=== PATIENT | female | born 1945 | race Hispanic/Latino ===

== ENCOUNTER 2016-06-22 10:23 | Emergency (ER) | payer MEDICARE, OTHER ==
[~2016-06-22] VITALS: Ht 160 cm; Wt 61.2 kg
[2016-06-22] MEDS ORDERED: ASPI1TAB PO (10:51)
[2016-06-22] MEDS ORDERED: ALLE60TA69 PO (10:51)
[2016-06-22] MEDS ORDERED: LISI-538 PO (10:51)
[2016-06-22] MEDS ORDERED: SIMV40TA2 PO (10:51)
[2016-06-22] MEDS ORDERED: [UNRECOGNIZED DRUG - OTHER] PO (10:51)
[2016-06-22] MEDS ORDERED: allergy shots (10:51)
[2016-06-22] MEDS ORDERED: SITA50TAB PO (10:51)
[2016-06-22 13:07] LABS: BASO % 0.8 % (0.0-1.0); EOS # 0.3 K/mm3 (0.0-0.50); EOS % 4.5 % (0.0-3.0); INR 0.88; LARGE UNSTAINED CELL # 0.1 K/mm3 (0.0-0.4); LARGE UNSTAINED CELL % 1.6 % (0.0-4.0); LYMPH # 1.9 K/mm3 (1.5-4.5); LYMPH % 27.2 % (24.0-44.0); MEAN CORPUSCULAR HEMOGLOBIN 31.5 pg (27.0-33.0); MEAN CORPUSCULAR HGB CONC 33.5 g/dl (32.0-36.5); MEAN CORPUSCULAR VOLUME 93.9 fl (80.0-96.0); MONO # 0.4 K/mm3 (0.0-0.8); NEUTROPHILS # 3.9 K/mm3 (1.8-7.7); NEUTROPHILS % 59.9 % (36.0-66.0); PLATELET COUNT, AUTOMATED 247 k/mm3 (150-450); RED CELL DISTRIBUTION WIDTH 12.1 % (11.5-14.5); WHITE BLOOD COUNT 6.5 K/mm3 (4.0-10.0)
--- NOTE | 2016-06-22 13:21 | REP ---
CT HEAD WITHOUT CONTRAST: HISTORY: Infarction. COMPARISON: 04/19/2005. Areas of decreased attentuation are present in the periventricular white matter. This presents small vessel ischemic disease. There is no intraparenchymal hemorrhage, mass, or midline shift. The ventricular system and cortical sulci are dilated consistent with minimal volume loss. There is no extracerebral collection. Mucosal thickening is present in the right sphenoid sinus. IMPRESSION: 1. Small vessel ischemic disease. 2. Minimal volume loss. Signed by Mazin Kelley MD 06/22/2016 01:24 P
[2016-06-22 13:22] LABS: ANION GAP 9 MEQ/L (8-16); BLOOD UREA NITROGEN 14 MG/DL (7-18); CALCIUM LEVEL 9.7 MG/DL (8.8-10.2); CARBON DIOXIDE LEVEL 30 MEQ/L (21-32); CHLORIDE LEVEL 102 MEQ/L (98-107); CREATININE FOR GFR 0.92 MG/DL (0.55-1.02); GLOMERULAR FILTRATION RATE > 60.0 (>39); GLUCOSE, FASTING 106 MG/DL (83-110); POTASSIUM SERUM 3.9 MEQ/L (3.5-5.1); SODIUM LEVEL 141 MEQ/L (136-145)
--- NOTE | 2016-06-22 13:46 | REP ---
Chest one-view HISTORY: Infarction Comparison: None The lungs are clear. The heart is normal in size. The pulmonary vasculature is normal in appearance. Impression: No acute disease. Signed by Mazin Kelley MD 06/22/2016 01:38 P
[2016-06-22 17:50] VITALS: BP 131/66
--- NOTE | 2016-06-22 20:30 | REPUSA ---
MRI of the brain Clinical history: Headaches. Blurred vision. Technique: Multiecho multiplanar MRI images of the brain were obtained before and after administratio n of 12 mL of Prohance intravenous gadolinium contrast. Diffusion weighted images with ADC mapping wa s also obtained. Findings: The ventricles and sulci are symmetric bilaterally. The brain parenchyma demonstrates scattered foci of T2 hyperintensity throughout the periventricular and subcortical white matter bilaterally. There i s no midline shift, mass effect, or extra-axial fluid collection. The midline intracranial structures do not demonstrate any gross abnormalities. The cervical cranial junction is intact. The orbits are unremarkable. The visualized paranasal sinuses and mastoid air cells are clear. The osseous structure s and superficial soft tissues are unremarkable. The vascular structures demonstrate appropriate flow voids. On postcontrast images, the vascular structures enhancing appropriately. No abnormal enhancin g masses are seen. Impression: No evidence of acute infarct. Moderate chronic small vessel ischemic disease.
--- NOTE | 2016-06-22 20:30 | REPUSA ---
MRA of the brain Clinical history: dizziness, headache. Technique: [id number] MRA images of the brain were obtained without administration of contrast. 3 -D MIP images were also obtained. Findings: The vascular structures extending from the distal carotid and vertebrobasilar arterial syst ems, through the [place], demonstrate normal caliber and contour. There is no evidence of an eurysm, stenosis, or thrombosis. Impression: Unremarkable MRA examination of the brain.
[2016-06-22] MEDS ORDERED: MORPHINE 2 MG/ML 1ML SYRINGE IV ONE (21:00)
[2016-06-22] MEDS ORDERED: ASPI81TA85 PO (21:36)
--- NOTE | 2016-06-23 10:59 | ECGEPIP ---
Stationary ECG Study [facility] - ED Test Date: 2016-06-22 Pat Name: JESSICA MCCONNELL Department: Room: - Gender: F Ehs Teacher: felix : 1945 Requested By: Billy Velázquez Order Number: [id number] Reading MD: Kathie Rodriguez Measurements Intervals [place] Rate: 74 P: 53 MD: 184 QRS: 6 QRSD: 87 T: 30 QT: 378 QTc: 421 Interpretive Statements SINUS RHYTHM NSTTW ABNORMALITY NO PRIOR FOR COMPARISON Electronically Signed On 06-23-2016 10:59:13 EDT by Kathie Rodriguez
--- NOTE | 2016-06-23 11:02 | ECGEPIP ---
Stationary ECG Study [facility] - ED Test Date: 2016-06-22 Pat Name: JESSICA MCCONNELL Department: Room: - Gender: F Data Modeling Architect: : 1945 Requested By: Billy Velázquez Order Number: [id number] Reading MD: Kathie Rodriguez Measurements Intervals [place] Rate: 70 P: 16 AK: 181 QRS: 3 QRSD: 82 T: 31 QT: 392 QTc: 425 Interpretive Statements SINUS RHYTHM NONSPECIFIC T-WAVE ABNORMALITY SIMILAR 06/22/16 Electronically Signed On 06-23-2016 11:02:33 EDT by Kathie Rodriguez
== END 2016-06-22 21:55 | disposition home or self-care (01) ==
LOC: M ED 11:28
DX: H53.2 Diplopia (principal); H49.00 Third [oculomotor] nerve palsy, unspecified eye; R42 Dizziness and giddiness; R51 Headache; I67.9 Cerebrovascular disease, unspecified; I10 Essential (primary) hypertension; Z79.82 Long term (current) use of aspirin; Z79.899 Other long term (current) drug therapy; Z88.2 Allergy status to sulfonamides; Z91.040 Latex allergy status
CPT/HCPCS: 36415; 70450; 70544; 70553; 71010; 80048; 82550; 82553; 84484; 85025; 85610; 85730; 86850; 86900; 86901; 93005; 93041; 94760; 96374; 99285; A9576

== ENCOUNTER → 2017-08-23 | Outpatient (CLI) | payer MEDICARE, OTHER | LOC: M RAD 09:52 | DX: I87.2 Venous insufficiency (chronic) (peripheral) (principal); M71.21 Synovial cyst of popliteal space [Baker], right knee; M79.661 Pain in right lower leg; M79.662 Pain in left lower leg | CPT/HCPCS: 93970 ==

== ENCOUNTER → 2017-10-03 | Outpatient (CLI) | payer MEDICARE, OTHER | LOC: M RAD 08:28 | DX: R22.42 Localized swelling, mass and lump, left lower limb (principal); R09.89 Other specified symptoms and signs involving the circulatory and respiratory systems | CPT/HCPCS: 93926 ==

== ENCOUNTER → 2019-04-22 | Outpatient (CLI) | payer MEDICARE, OTHER ==
[~2019-04-22] MED LIST: ALLE60TA69 PO; ASPI81TA26 PO; ASPI81TA85 PO; LISI-538 PO; SIMV40TA20 PO; SITA50TAB PO; [UNRECOGNIZED DRUG - OTHER] PO; allergy shots
== END ==
LOC: M LAB 14:28
PROVIDERS: ATTEND Internal Medicine Cardiovascular Disease
DX: R07.89 Other chest pain (principal)

== ENCOUNTER → 2019-12-08 | Outpatient (CLI) | payer MEDICARE, OTHER ==
[~2019-12-08] MED LIST changes: -ASPI81TA85 PO; +ASPI81TA86 PO
== END ==
LOC: M LABSMTC 11:07
PROVIDERS: ATTEND Family Medicine
DX: Z20.828 Contact with and (suspected) exposure to other viral communicable diseases (principal)
CPT/HCPCS: C9803; U0003

== ENCOUNTER → 2021-12-20 | Outpatient (CLI) | payer MEDICARE, OTHER ==
[~2021-12-20] MED LIST changes: -LISI-538 PO; +LISI20TA33 PO
== END ==
LOC: M WHC 11:15
PROVIDERS: ATTEND Family Medicine
DX: Z12.31 Encounter for screening mammogram for malignant neoplasm of breast (principal)

== ENCOUNTER 2022-05-13 13:20 | Inpatient (IN) | payer MEDICARE, OTHER ==
[~2022-05-13] VITALS: Ht 160 cm; Wt 59.4 kg
[2022-05-13] MEDS ORDERED: ONDANSETRON 4MG 2ML VIAL IV ONE (13:30)
[2022-05-13 14:05] LABS: BASO # 0.1 10^3/uL (0.0-0.2); BASO % 0.6 % (0.0-1.0); EOS # 0.3 10^3/uL (0.0-0.5); EOS % 3.2 % (0.0-3.0); HEMATOCRIT 46.5 % (36.0-47.0); HEMOGLOBIN 14.5 g/dl (12.0-15.5); LYMPH # 2.7 10^3/uL (1.5-5.0); LYMPH % 27.4 % (24.0-44.0); MEAN CORPUSCULAR HEMOGLOBIN 28.5 pg (27.0-33.0); MEAN CORPUSCULAR HGB CONC 31.2 g/dl (32.0-36.5); MEAN CORPUSCULAR VOLUME 91.5 fl (80.0-96.0); MONO # 0.7 10^3/uL (0.0-0.8); MONO % 7.1 % (2.0-8.0); NEUTROPHILS % 61.2 % (36.0-66.0); PLATELET COUNT, AUTOMATED 250 10^3/uL (150-450); RED BLOOD COUNT 5.08 10^6/uL (4.00-5.40); WHITE BLOOD COUNT 9.8 10^3/uL (4.0-10.0)
[2022-05-13] MEDS: MORPHINE 2 MG/ML 1ML VIAL IV PRN ×3 (14:05→20:32)
[2022-05-13] MEDS ORDERED: ERGO500029 PO (14:15)
[2022-05-13] MEDS ORDERED: ASPI1TAB22 PO (14:15)
[2022-05-13] MEDS ORDERED: LISI20TA33 PO (14:15)
[2022-05-13] MEDS ORDERED: JARD1TAB PO (14:15)
[2022-05-13] MEDS ORDERED: METF10004 PO (14:15)
[2022-05-13] MEDS ORDERED: ROSU10TA6 PO (14:15)
[2022-05-13 14:18] LABS: INR 0.86; PROTHROMBIN TIME 11.9 SECONDS (12.5-14.5)
[2022-05-13 14:19] LABS: PARTIAL THROMBOPLASTIN TIME 21.8 SECONDS (24.8-34.2)
[2022-05-13 14:36] LABS: LIPASE 56 U/L (12-53)
[2022-05-13 14:42] LABS: ALKALINE PHOSPHATASE 102 U/L (46-116); ALT/SGPT 22 U/L (7.0-40); AST/SGOT 25 U/L (<34); BILIRUBIN,DIRECT 0.1 MG/DL (<0.4); BILIRUBIN,TOTAL 0.4 MG/DL (0.3-1.2); BLOOD UREA NITROGEN 17 MG/DL (9-23); CALCIUM LEVEL 9.5 MG/DL (8.3-10.6); CARBON DIOXIDE LEVEL 24 MMOL/L (20-31); CHLORIDE LEVEL 105 MMOL/L (98-107); CREATININE FOR GFR 0.85 MG/DL (0.55-1.30); GLOMERULAR FILTRATION RATE > 60.0 (>39); GLUCOSE, FASTING 80 MG/DL (74-106); POTASSIUM SERUM 4.3 MMOL/L (3.5-5.1); SODIUM LEVEL 139 MMOL/L (136-145); TOTAL PROTEIN 7.3 G/DL (5.7-8.2)
[2022-05-13 15:12] LABS: RSV AMPLIFICATION NEGATIVE (NEGATIVE)
[2022-05-13] MEDS ORDERED: ISOVUE-370 76% 100ML VIAL As Ordered ONE (16:00)
[2022-05-13 16:32] LABS: CK-MB VALUE MASS < 1.0 NG/ML (<3.6)
[2022-05-13 16:36] LABS: CPK CREATINE PHOSPHOKINASE 50 U/L (34-145)
[2022-05-13] MEDS ORDERED: MORPHINE 2 MG/ML 1ML VIAL IV PRN ×2 (17:35→17:50)
[2022-05-13] MEDS ORDERED: GLUCAGON INJ 1MG VIAL SC PRN (17:35)
[2022-05-13] MEDS ORDERED: DEXTROSE 50% 50ML SYRINGE IV PRN (17:35)
[2022-05-13] MEDS ORDERED: ASPIRIN 81MG CHEW TABLET PO ONE (17:35)
[2022-05-13] MEDS ORDERED: GLUCOSE 4GM CHEW TABLET PO PRN (17:35)
[2022-05-13] MEDS ORDERED: IPRATROPIUM 0.5MG/ALBUTEROL 2.5MG INH SOL UD 3ML (DUONEB) NEB PRN (17:50)
[2022-05-13] MEDS ORDERED: SITA50TAB PO (18:51)
[2022-05-13] MEDS ORDERED: CVS2500C PO (18:51)
[2022-05-13] MEDS ORDERED: HOME MED LIST COMPLETE! XX SCH (18:55)
[2022-05-13 19:46] LABS: CHOLESTEROL RISK RATIO 2.7 (<5); HDL CHOLESTEROL 58.7 MG/DL (>40); LDL CHOLESTEROL 75.9 MG/DL (<100); NON-HDL-C 100.3 MG/DL
[2022-05-13] MEDS: IPRATROPIUM 0.5MG/ALBUTEROL 2.5MG INH SOL UD 3ML (DUONEB) NEB SCH (20:58)
[2022-05-13] MEDS ORDERED: ATORVASTATIN 20 MG TAB PO SCH (21:00)
[2022-05-13] MEDS: INSULIN LISPRO (NovoLOG) PER UNIT SC SCH (21:00)
[2022-05-14] VITALS (8 sets, daily range): BP systolic 130–178; BP diastolic 60–89; O2SAT 98
[2022-05-14] MEDS: MORPHINE 2 MG/ML 1ML VIAL IV PRN ×4 (00:53→18:20)
[2022-05-14] MEDS: IPRATROPIUM 0.5MG/ALBUTEROL 2.5MG INH SOL UD 3ML (DUONEB) NEB SCH ×4 (02:00→19:25)
[2022-05-14 05:57] LABS: HEMATOCRIT 40.6 % (36.0-47.0); HEMOGLOBIN 12.7 g/dl (12.0-15.5); MEAN CORPUSCULAR HGB CONC 31.3 g/dl (32.0-36.5); MEAN CORPUSCULAR VOLUME 92.7 fl (80.0-96.0); PLATELET COUNT, AUTOMATED 249 10^3/uL (150-450); RED BLOOD COUNT 4.38 10^6/uL (4.00-5.40); WHITE BLOOD COUNT 8.3 10^3/uL (4.0-10.0)
[2022-05-14 06:06] LABS: CALCIUM LEVEL 9.1 MG/DL (8.3-10.6); CREATININE FOR GFR 1.09 MG/DL (0.55-1.30); GLOMERULAR FILTRATION RATE 51.8 (>39); POTASSIUM SERUM 5.1 MMOL/L (3.5-5.1)
[2022-05-14] MEDS: ASPIRIN 325 MG TAB PO SCH (09:02)
[2022-05-14] MEDS: INSULIN LISPRO (NovoLOG) PER UNIT SC SCH ×4 (09:07→21:00)
[2022-05-14] MEDS: NS 1,000 ML IV SCH (17:25)
[2022-05-14] MEDS: HEPARIN SOD (PORCINE) 5000UNITS/ML 1ML VIAL/SYRINGE SQ SCH (22:28)
[2022-05-15] MEDS: IPRATROPIUM 0.5MG/ALBUTEROL 2.5MG INH SOL UD 3ML (DUONEB) NEB SCH ×3 (01:01→13:51)
[2022-05-15 02:00] VITALS: BP 151/85
[2022-05-15] MEDS: MORPHINE 2 MG/ML 1ML VIAL IV PRN (04:26)
[2022-05-15 05:56] VITALS: O2SAT 96
[2022-05-15 06:00] VITALS: BP 154/84
[2022-05-15] MEDS: NS 1,000 ML IV SCH (06:00)
[2022-05-15] MEDS: HEPARIN SOD (PORCINE) 5000UNITS/ML 1ML VIAL/SYRINGE SQ SCH (06:00)
[2022-05-15 06:59] LABS: HEMOGLOBIN 11.8 g/dl (12.0-15.5); MEAN CORPUSCULAR HEMOGLOBIN 29.2 pg (27.0-33.0); MEAN CORPUSCULAR HGB CONC 30.3 g/dl (32.0-36.5); MEAN CORPUSCULAR VOLUME 96.5 fl (80.0-96.0); PLATELET COUNT, AUTOMATED 117 10^3/uL (150-450); RED BLOOD COUNT 4.04 10^6/uL (4.00-5.40); WHITE BLOOD COUNT 5.8 10^3/uL (4.0-10.0)
[2022-05-15 07:12] LABS: BLOOD UREA NITROGEN 20 MG/DL (9-23); CARBON DIOXIDE LEVEL 22 MMOL/L (20-31); CHLORIDE LEVEL 108 MMOL/L (98-107); CREATININE FOR GFR 0.88 MG/DL (0.55-1.30); GLOMERULAR FILTRATION RATE > 60.0 (>39); GLUCOSE, FASTING 125 MG/DL (74-106); SODIUM LEVEL 138 MMOL/L (136-145)
[2022-05-15] MEDS ORDERED: PERCOCET 5MG/325MG TAB PO PRN (07:20)
[2022-05-15 08:52] VITALS: BP 174/97
[2022-05-15] MEDS: ASPIRIN 325 MG TAB PO SCH (08:52)
[2022-05-15] MEDS: INSULIN LISPRO (NovoLOG) PER UNIT SC SCH ×2 (08:53→12:29)
[2022-05-15] MEDS ORDERED: ROSUVASTATIN 10 MG TAB (CRESTOR) PO SCH (09:00)
[2022-05-15 10:00] VITALS: BP 149/67
[2022-05-15 10:08] VITALS: BP 146/67
[2022-05-15] MEDS ORDERED: PERCOCET PO (11:37)
== END 2022-05-15 14:13 | DRG 185 ==
LOC: M ED 13:20 → M ED INP 17:46 → ENRESERV 22:37 → M PCU 05-14 00:37 → M MSPAV 05-14 14:54
PROVIDERS: ADMIT Surgery; ATTEND Internal Medicine
DX: S22.42XA Multiple fractures of ribs, left side, initial encounter for closed fracture (principal); I10 Essential (primary) hypertension; E11.9 Type 2 diabetes mellitus without complications; I16.0 Hypertensive urgency; E55.9 Vitamin D deficiency, unspecified; D69.6 Thrombocytopenia, unspecified; W18.30XA Fall on same level, unspecified, initial encounter; Y92.510 Bank as the place of occurrence of the external cause; R29.810 Facial weakness; Z88.2 Allergy status to sulfonamides; Z91.040 Latex allergy status; Z88.8 Allergy status to other drugs, medicaments and biological substances; Z79.82 Long term (current) use of aspirin; Z79.899 Other long term (current) drug therapy; E78.5 Hyperlipidemia, unspecified; K80.20 Calculus of gallbladder without cholecystitis without obstruction

== ENCOUNTER 2022-05-15 11:44 | Inpatient (IN) | payer MEDICARE, OTHER ==
[~2022-05-15] VITALS: Ht 160 cm; Wt 59.0 kg
[~2022-05-15 11:44] MED LIST changes: +ASPI1TAB22 PO; +CVS2500C PO; +ERGO500029 PO; +JARD1TAB PO; +METF10004 PO; +PERCOCET PO; +ROSU10TA6 PO
[2022-05-15 14:30] VITALS: BP 153/70
[2022-05-15] MEDS ORDERED: GLUCOSE 4GM CHEW TABLET PO PRN (14:35)
[2022-05-15] MEDS ORDERED: DEXTROSE 50% 50ML SYRINGE IV PRN (14:35)
[2022-05-15] MEDS ORDERED: BISACODYL 10MG SUPP PR PRN (14:35)
[2022-05-15] MEDS ORDERED: GLUCAGON INJ 1MG VIAL SC PRN (14:35)
[2022-05-15] MEDS ORDERED: HOME MED LIST COMPLETE! XX SCH (15:05)
[2022-05-15] MEDS: REMEDY PHYTOPLEX Z-GUARD PASTE 113GM TUBE (FROM STOREROOM PRODUCT) TOP SCH ×2 (16:00→21:00)
[2022-05-15] MEDS: oxyCODONE 5MG TAB PO PRN (17:54)
[2022-05-15] MEDS: guaiFENesin 200 MG TAB PO SCH ×2 (17:54→21:06)
[2022-05-15] MEDS: INSULIN LISPRO (NovoLOG) PER UNIT SC SCH ×2 (17:55→21:00)
[2022-05-15] MEDS: COMBIVENT RESPIMAT 100-20MCG INHALER 4GM INH SCH (19:43)
[2022-05-15 20:00] VITALS: BP 170/65
[2022-05-15] MEDS: DICLOFENAC EPOLAMINE 1.3% PATCH TOP SCH (21:05)
[2022-05-15] MEDS: HEPARIN SOD (PORCINE) 5000UNITS/ML 1ML VIAL/SYRINGE SC SCH (21:05)
[2022-05-15] MEDS: DOCUSATE SODIUM 100MG CAPSULE PO SCH (21:06)
[2022-05-15] MEDS: PANTOPRAZOLE 40MG TAB (PROTONIX) PO SCH (21:06)
[2022-05-15] MEDS: ACETAMINOPHEN 650MG ER TAB (TYLENOL ARTHRITIS) PO SCH (21:06)
[2022-05-15] MEDS: SENNA 8.6 MG TAB (SENOKOT) PO SCH (21:06)
[2022-05-15] MEDS ORDERED: **hydrALAZINE** 10 MG TAB PO ONE (21:35)
[2022-05-15 22:50] VITALS: BP 166/84
[2022-05-16] MEDS: ACETAMINOPHEN 650MG ER TAB (TYLENOL ARTHRITIS) PO SCH ×3 (05:44→21:04)
[2022-05-16] MEDS: HEPARIN SOD (PORCINE) 5000UNITS/ML 1ML VIAL/SYRINGE SC SCH ×3 (05:45→21:03)
[2022-05-16 06:00] VITALS: BP 176/90
[2022-05-16 07:06] LABS: BASO % 0.5 % (0.0-1.0); EOS # 0.4 10^3/uL (0.0-0.5); EOS % 7.5 % (0.0-3.0); HEMATOCRIT 40.2 % (36.0-47.0); HEMOGLOBIN 12.5 g/dl (12.0-15.5); LYMPH # 1.6 10^3/uL (1.5-5.0); MEAN CORPUSCULAR HEMOGLOBIN 28.6 pg (27.0-33.0); MEAN CORPUSCULAR HGB CONC 31.1 g/dl (32.0-36.5); MONO # 0.7 10^3/uL (0.0-0.8); MONO % 11.8 % (2.0-8.0); PLATELET COUNT, AUTOMATED 216 10^3/uL (150-450); RED BLOOD COUNT 4.37 10^6/uL (4.00-5.40); WHITE BLOOD COUNT 5.7 10^3/uL (4.0-10.0)
[2022-05-16 07:37] LABS: ALBUMIN 3.2 G/DL (3.2-5.2); ALKALINE PHOSPHATASE 82 U/L (46-116); ALT/SGPT 14 U/L (7.0-40); AST/SGOT 13 U/L (<34); BILIRUBIN,TOTAL 0.4 MG/DL (0.3-1.2); BLOOD UREA NITROGEN 21 MG/DL (9-23); CALCIUM LEVEL 8.7 MG/DL (8.3-10.6); CARBON DIOXIDE LEVEL 24 MMOL/L (20-31); CHLORIDE LEVEL 106 MMOL/L (98-107); GLOMERULAR FILTRATION RATE > 60.0 (>39); GLUCOSE, FASTING 142 MG/DL (74-106); POTASSIUM SERUM 4.1 MMOL/L (3.5-5.1); SODIUM LEVEL 139 MMOL/L (136-145)
[2022-05-16] MEDS: COMBIVENT RESPIMAT 100-20MCG INHALER 4GM INH SCH ×3 (08:01→20:00)
[2022-05-16] MEDS: REMEDY PHYTOPLEX Z-GUARD PASTE 113GM TUBE (FROM STOREROOM PRODUCT) TOP SCH ×3 (09:00→21:00)
[2022-05-16] MEDS: LIDOCAINE 5% (LIDODERM) PATCH TD SCH (09:02)
[2022-05-16] MEDS: ASPIRIN ENTERIC 325MG TAB PO SCH (09:03)
[2022-05-16] MEDS: INSULIN LISPRO (NovoLOG) PER UNIT SC SCH ×4 (09:03→21:02)
[2022-05-16] MEDS: DICLOFENAC EPOLAMINE 1.3% PATCH TOP SCH ×2 (09:03→21:08)
[2022-05-16] MEDS: PANTOPRAZOLE 40MG TAB (PROTONIX) PO SCH ×2 (09:04→21:00)
[2022-05-16] MEDS: SITagliptin 50 MG TAB (JANUVIA) PO SCH (09:04)
[2022-05-16] MEDS: ROSUVASTATIN 10 MG TAB (CRESTOR) PO SCH (09:04)
[2022-05-16] MEDS: guaiFENesin 200 MG TAB PO SCH ×3 (09:04→21:00)
[2022-05-16] MEDS: DOCUSATE SODIUM 100MG CAPSULE PO SCH ×2 (09:04→21:13)
[2022-05-16] MEDS: amLODIPine 5 MG TAB PO SCH ×2 (12:01→21:03)
[2022-05-16 14:00] VITALS: BP 146/82
[2022-05-16] MEDS: MIRALAX *UNIT DOSE* 17GM PACKET PO SCH (18:10)
[2022-05-16 20:00] VITALS: BP 142/84
[2022-05-16] MEDS: MAGNESIUM OXIDE 400MG TAB (MAG-OX) PO SCH (21:03)
[2022-05-16] MEDS: SENNA 8.6 MG TAB (SENOKOT) PO SCH (21:03)
[2022-05-16] MEDS: traZODone 25MG PER 1/2 TABLET PO SCH (21:13)
[2022-05-17] MEDS: oxyCODONE 5MG TAB PO PRN ×2 (00:09→20:39)
[2022-05-17 05:30] VITALS: BP 138/65
[2022-05-17 06:27] LABS: BASO % 0.6 % (0.0-1.0); EOS # 0.4 10^3/uL (0.0-0.5); EOS % 6.5 % (0.0-3.0); HEMATOCRIT 41.4 % (36.0-47.0); HEMOGLOBIN 12.9 g/dl (12.0-15.5); LYMPH # 1.6 10^3/uL (1.5-5.0); MEAN CORPUSCULAR HEMOGLOBIN 28.6 pg (27.0-33.0); MEAN CORPUSCULAR HGB CONC 31.2 g/dl (32.0-36.5); MEAN CORPUSCULAR VOLUME 91.8 fl (80.0-96.0); MONO # 0.6 10^3/uL (0.0-0.8); MONO % 9.7 % (2.0-8.0); NEUTROPHILS # 3.6 10^3/uL (1.5-8.5); NEUTROPHILS % 56.7 % (36.0-66.0); PLATELET COUNT, AUTOMATED 233 10^3/uL (150-450); RED BLOOD COUNT 4.51 10^6/uL (4.00-5.40); WHITE BLOOD COUNT 6.3 10^3/uL (4.0-10.0)
[2022-05-17] MEDS: HEPARIN SOD (PORCINE) 5000UNITS/ML 1ML VIAL/SYRINGE SC SCH ×3 (06:29→20:35)
[2022-05-17] MEDS: ACETAMINOPHEN 650MG ER TAB (TYLENOL ARTHRITIS) PO SCH ×3 (06:29→20:34)
[2022-05-17 06:52] LABS: BLOOD UREA NITROGEN 20 MG/DL (9-23); CALCIUM LEVEL 9.1 MG/DL (8.3-10.6); CARBON DIOXIDE LEVEL 25 MMOL/L (20-31); CHLORIDE LEVEL 107 MMOL/L (98-107); CREATININE FOR GFR 0.82 MG/DL (0.55-1.30); GLOMERULAR FILTRATION RATE > 60.0 (>39); GLUCOSE, FASTING 137 MG/DL (74-106); POTASSIUM SERUM 4.1 MMOL/L (3.5-5.1); SODIUM LEVEL 140 MMOL/L (136-145)
[2022-05-17] MEDS: INSULIN LISPRO (NovoLOG) PER UNIT SC SCH ×4 (08:59→20:32)
[2022-05-17] MEDS: DOCUSATE SODIUM 100MG CAPSULE PO SCH ×2 (09:00→20:30)
[2022-05-17] MEDS: ASPIRIN ENTERIC 325MG TAB PO SCH (09:00)
[2022-05-17] MEDS: PANTOPRAZOLE 40MG TAB (PROTONIX) PO SCH ×2 (09:00→20:31)
[2022-05-17] MEDS: SITagliptin 50 MG TAB (JANUVIA) PO SCH (09:00)
[2022-05-17] MEDS: ROSUVASTATIN 10 MG TAB (CRESTOR) PO SCH (09:00)
[2022-05-17] MEDS: guaiFENesin 200 MG TAB PO SCH ×3 (09:00→20:33)
[2022-05-17] MEDS: REMEDY PHYTOPLEX Z-GUARD PASTE 113GM TUBE (FROM STOREROOM PRODUCT) TOP SCH ×3 (09:00→20:31)
[2022-05-17] MEDS: amLODIPine 5 MG TAB PO SCH ×2 (09:00→20:31)
[2022-05-17] MEDS: DICLOFENAC EPOLAMINE 1.3% PATCH TOP SCH ×2 (09:01→20:31)
[2022-05-17] MEDS: MIRALAX *UNIT DOSE* 17GM PACKET PO SCH (09:01)
[2022-05-17] MEDS: LIDOCAINE 5% (LIDODERM) PATCH TD SCH (09:01)
[2022-05-17] MEDS: COMBIVENT RESPIMAT 100-20MCG INHALER 4GM INH SCH ×3 (09:09→21:41)
[2022-05-17 14:00] VITALS: BP 146/85
[2022-05-17 20:03] VITALS: BP 138/71
[2022-05-17] MEDS: traZODone 25MG PER 1/2 TABLET PO SCH (20:30)
[2022-05-17] MEDS: SENNA 8.6 MG TAB (SENOKOT) PO SCH (20:31)
[2022-05-17] MEDS: MAGNESIUM OXIDE 400MG TAB (MAG-OX) PO SCH (20:31)
[2022-05-18] MEDS: ACETAMINOPHEN 650MG ER TAB (TYLENOL ARTHRITIS) PO SCH ×3 (05:30→20:58)
[2022-05-18] MEDS: HEPARIN SOD (PORCINE) 5000UNITS/ML 1ML VIAL/SYRINGE SC SCH ×3 (05:30→21:02)
[2022-05-18 06:00] VITALS: BP 132/74
[2022-05-18] MEDS: guaiFENesin 200 MG TAB PO SCH ×3 (07:50→20:55)
[2022-05-18] MEDS: ASPIRIN ENTERIC 325MG TAB PO SCH (07:51)
[2022-05-18] MEDS: amLODIPine 5 MG TAB PO SCH ×2 (07:51→20:56)
[2022-05-18] MEDS: DOCUSATE SODIUM 100MG CAPSULE PO SCH ×2 (07:51→20:56)
[2022-05-18] MEDS: ROSUVASTATIN 10 MG TAB (CRESTOR) PO SCH (07:51)
[2022-05-18] MEDS: SITagliptin 50 MG TAB (JANUVIA) PO SCH (07:51)
[2022-05-18] MEDS: DICLOFENAC EPOLAMINE 1.3% PATCH TOP SCH ×2 (07:52→20:56)
[2022-05-18] MEDS: INSULIN LISPRO (NovoLOG) PER UNIT SC SCH ×4 (07:52→20:11)
[2022-05-18] MEDS: MIRALAX *UNIT DOSE* 17GM PACKET PO SCH (07:52)
[2022-05-18] MEDS: LIDOCAINE 5% (LIDODERM) PATCH TD SCH (07:52)
[2022-05-18] MEDS: REMEDY PHYTOPLEX Z-GUARD PASTE 113GM TUBE (FROM STOREROOM PRODUCT) TOP SCH ×3 (07:52→20:56)
[2022-05-18] MEDS: PANTOPRAZOLE 40MG TAB (PROTONIX) PO SCH ×2 (07:54→20:56)
[2022-05-18] MEDS: oxyCODONE 5MG TAB PO PRN (08:01)
[2022-05-18] MEDS: COMBIVENT RESPIMAT 100-20MCG INHALER 4GM INH SCH ×3 (09:25→21:44)
[2022-05-18 14:00] VITALS: BP 128/70
[2022-05-18 20:00] VITALS: BP 139/68
[2022-05-18] MEDS: traZODone 25MG PER 1/2 TABLET PO SCH (20:55)
[2022-05-18] MEDS: MAGNESIUM OXIDE 400MG TAB (MAG-OX) PO SCH (20:55)
[2022-05-18] MEDS: SENNA 8.6 MG TAB (SENOKOT) PO SCH (20:56)
[2022-05-19] MEDS: oxyCODONE 5MG TAB PO PRN (01:26)
[2022-05-19 06:00] VITALS: BP 138/75
[2022-05-19] MEDS: ACETAMINOPHEN 650MG ER TAB (TYLENOL ARTHRITIS) PO SCH (06:56)
[2022-05-19] MEDS: HEPARIN SOD (PORCINE) 5000UNITS/ML 1ML VIAL/SYRINGE SC SCH (06:56)
[2022-05-19] MEDS: COMBIVENT RESPIMAT 100-20MCG INHALER 4GM INH SCH (07:35)
[2022-05-19] MEDS: INSULIN LISPRO (NovoLOG) PER UNIT SC SCH (08:16)
[2022-05-19 08:17] VITALS: BP 138/75
[2022-05-19] MEDS: guaiFENesin 200 MG TAB PO SCH (08:17)
[2022-05-19] MEDS: PANTOPRAZOLE 40MG TAB (PROTONIX) PO SCH (08:17)
[2022-05-19] MEDS: SITagliptin 50 MG TAB (JANUVIA) PO SCH (08:17)
[2022-05-19] MEDS: DOCUSATE SODIUM 100MG CAPSULE PO SCH (08:17)
[2022-05-19] MEDS: MIRALAX *UNIT DOSE* 17GM PACKET PO SCH (08:17)
[2022-05-19] MEDS: ASPIRIN ENTERIC 325MG TAB PO SCH (08:17)
[2022-05-19] MEDS: amLODIPine 5 MG TAB PO SCH (08:17)
[2022-05-19] MEDS: ROSUVASTATIN 10 MG TAB (CRESTOR) PO SCH (08:17)
[2022-05-19] MEDS: REMEDY PHYTOPLEX Z-GUARD PASTE 113GM TUBE (FROM STOREROOM PRODUCT) TOP SCH (08:18)
[2022-05-19] MEDS: LIDOCAINE 5% (LIDODERM) PATCH TD SCH (08:18)
[2022-05-19] MEDS: DICLOFENAC EPOLAMINE 1.3% PATCH TOP SCH (08:18)
[2022-05-19] MEDS ORDERED: ROSU10TA6 PO (10:05)
[2022-05-19] MEDS ORDERED: AMLO1TAB24 PO (10:05)
[2022-05-19] MEDS ORDERED: ASPI1TAB22 PO (10:05)
[2022-05-19] MEDS ORDERED: SITA50TAB PO (10:05)
[2022-05-19] MEDS ORDERED: LISI20TA33 PO (10:05)
[2022-05-19] MEDS ORDERED: DICL20GE TP (10:07)
[2022-05-19] MEDS ORDERED: MAGN400T2 PO (10:07)
[2022-05-19] MEDS ORDERED: OXYC-517 PO (10:28)
== END 2022-05-19 12:08 | disposition home or self-care (01) | DRG 561 ==
LOC: M PM&R 14:20
PROVIDERS: ADMIT Physical Medicine & Rehabilitation; ATTEND Physical Medicine & Rehabilitation
DX: S22.42XD Multiple fractures of ribs, left side, subsequent encounter for fracture with routine healing (principal); S06.0X0D Concussion without loss of consciousness, subsequent encounter; I10 Essential (primary) hypertension; R26.89 Other abnormalities of gait and mobility; E11.9 Type 2 diabetes mellitus without complications; E78.5 Hyperlipidemia, unspecified; E55.9 Vitamin D deficiency, unspecified; Z74.09 Other reduced mobility; Z74.1 Need for assistance with personal care; R53.1 Weakness; Z79.82 Long term (current) use of aspirin; Z79.84 Long term (current) use of oral hypoglycemic drugs; Z79.899 Other long term (current) drug therapy; Z88.2 Allergy status to sulfonamides; Z88.8 Allergy status to other drugs, medicaments and biological substances; Z91.040 Latex allergy status; R91.1 Solitary pulmonary nodule; E27.8 Other specified disorders of adrenal gland; K57.30 Diverticulosis of large intestine without perforation or abscess without bleeding; W18.30XD Fall on same level, unspecified, subsequent encounter

== ENCOUNTER 2023-03-22 12:27 | Day surgery (SDC) | payer MEDICARE, OTHER ==
[~2023-03-22] VITALS: Ht 160 cm; Wt 59.4 kg
[~2023-03-22 12:27] MED LIST changes: +AMLO1TAB24 PO; +CLOP75TA2 PO; +CYAN100049 PO; +DICL20GE TP; +ECOT81TA5 PO; +MAGN400T2 PO; +MIDAZOLAM INJ 2MG/2ML VIAL As Ordered ONE; +OXYC-517 PO; +SPIR-10 PO
[2023-03-22] MEDS: LIDOCAINE 3.5 % 1ML OPHTH TOPICAL GEL OU ONE (13:00)
[2023-03-22] MEDS: mitoMYcin 0.2 MG/VIAL KIT FOR OPHTHALMIC USE As Ordered ONE (14:00)
[2023-03-22] MEDS: POVIDONE-IODINE 5% OPHTH PREP SOL 30ML As Ordered ONE (14:00)
[2023-03-22] MEDS: LIDOCAINE 1% SDV 5ML VIAL As Ordered ONE (14:00)
[2023-03-22 14:03] VITALS: BP 146/84; TEMP 96.3; O2SAT 97
== END 2023-03-22 14:30 | disposition home or self-care (01) ==
LOC: M SDC 12:27
PROVIDERS: ATTEND Ophthalmology
DX: H40.811 Glaucoma with increased episcleral venous pressure, right eye (principal); Z88.2 Allergy status to sulfonamides; Z91.018 Allergy to other foods; Z91.040 Latex allergy status; Z88.8 Allergy status to other drugs, medicaments and biological substances
CPT/HCPCS: 66183; C1783; J2250; J7315

== ENCOUNTER 2023-07-12 06:05 | Day surgery (SDC) | payer MEDICARE, OTHER ==
[~2023-07-12] VITALS: Ht 160 cm; Wt 58.5 kg
[~2023-07-12 06:05] MED LIST changes: +ATROPINE SULFATE 1% OPHTH SOLN 2ML BTL OS SCH; +LIDOCAINE 3.5 % 1ML OPHTH TOPICAL GEL OU ONE; -MIDAZOLAM INJ 2MG/2ML VIAL As Ordered ONE; +OFLOXACIN 0.3 % (OCUFLOX) OPTH SOL 5ML OS ONE; +PHENYLEPHRINE 10% OPHTH SOL 5ML OS PRN; +PHENYLEPHRINE 2.5% OPHTH SOL 2ML OS SCH; -ROSU10TA6 PO; +ROSU10TA61 PO; +TROPICAMIDE 1% OPHTH SOLN 15ML OS SCH
[2023-07-12] MEDS: LIDOCAINE 3.5 % 1ML OPHTH TOPICAL GEL OU ONE (06:42)
[2023-07-12] MEDS ORDERED: MIDAZOLAM INJ 2MG/2ML VIAL As Ordered ONE (07:15)
[2023-07-12] MEDS ORDERED: fentaNYL 100 MCG/2 ML INJECTION As Ordered ONE (07:15)
[2023-07-12] MEDS: LIDOCAINE 1% SDV 5ML VIAL As Ordered ONE (07:34)
[2023-07-12] MEDS: TOBRADEX OPHTH OINT 3.5 GM As Ordered ONE (07:37)
[2023-07-12] MEDS: mitoMYcin 0.2 MG/VIAL KIT FOR OPHTHALMIC USE As Ordered ONE (07:37)
[2023-07-12 07:44] VITALS: BP 131/61; TEMP 97.9; O2SAT 96
== END 2023-07-12 08:20 | disposition home or self-care (01) ==
LOC: M SDC 06:05
PROVIDERS: ATTEND Ophthalmology
DX: H40.812 Glaucoma with increased episcleral venous pressure, left eye (principal); I10 Essential (primary) hypertension; E78.5 Hyperlipidemia, unspecified; E11.9 Type 2 diabetes mellitus without complications; Z79.02 Long term (current) use of antithrombotics/antiplatelets; Z79.84 Long term (current) use of oral hypoglycemic drugs; Z88.2 Allergy status to sulfonamides; Z88.8 Allergy status to other drugs, medicaments and biological substances; Z91.018 Allergy to other foods; Z91.040 Latex allergy status
CPT/HCPCS: 66183; 93005; C1783; J2250; J3010; J7315

== ENCOUNTER 2023-11-13 12:18 | Day surgery (SDC) | payer MEDICARE, OTHER ==
[~2023-11-13] VITALS: Ht 160 cm; Wt 59.4 kg
[~2023-11-13 12:18] MED LIST changes: -ATROPINE SULFATE 1% OPHTH SOLN 2ML BTL OS SCH; +HYDR-643 PO; +LIDOCAINE 2% 100MG/5ML SDV (FOR ANES.) As Ordered ONE; -LIDOCAINE 3.5 % 1ML OPHTH TOPICAL GEL OU ONE; -OFLOXACIN 0.3 % (OCUFLOX) OPTH SOL 5ML OS ONE; -PHENYLEPHRINE 10% OPHTH SOL 5ML OS PRN; -PHENYLEPHRINE 2.5% OPHTH SOL 2ML OS SCH; -TROPICAMIDE 1% OPHTH SOLN 15ML OS SCH; +XALA0.007; +propofoL 200 MG/20 ML VIAL As Ordered ONE
[2023-11-13] MEDS ORDERED: LR 1,000 ML IV SCH (12:55)
[2023-11-13] MEDS ORDERED: GLUCAGON INJ 1MG VIAL SC PRN (12:55)
[2023-11-13] MEDS ORDERED: DEXTROSE 50% 50ML SYRINGE IV PRN (12:55)
[2023-11-13] MEDS ORDERED: GLUCOSE 4 GM CHEW PO PRN (12:55)
[2023-11-13] MEDS ORDERED: INSULIN LISPRO (NovoLOG) PER UNIT SC PRN (12:55)
[2023-11-13] MEDS: ceFAZolin SOD 2 GM in IV 1 EA IV ONE (13:37)
[2023-11-13] MEDS: LIDOCAINE 1% SDV 30ML VIAL As Ordered ONE (13:47)
[2023-11-13 14:19] VITALS: BP 148/85; TEMP 97.5; O2SAT 96
== END 2023-11-13 14:22 | disposition home or self-care (01) ==
LOC: M SDC 12:18
PROVIDERS: ATTEND Internal Medicine Cardiovascular Disease
DX: Z45.09 Encounter for adjustment and management of other cardiac device (principal); I63.9 Cerebral infarction, unspecified; I10 Essential (primary) hypertension; E78.5 Hyperlipidemia, unspecified; E11.9 Type 2 diabetes mellitus without complications; Z86.73 Personal history of transient ischemic attack (TIA), and cerebral infarction without residual deficits; Z79.899 Other long term (current) drug therapy; Z79.82 Long term (current) use of aspirin; Z79.84 Long term (current) use of oral hypoglycemic drugs
CPT/HCPCS: 33286; J0690

== ENCOUNTER → 2024-04-01 | Outpatient (CLI) | payer MEDICARE, OTHER ==
[~2024-04-01] MED LIST changes: -LIDOCAINE 2% 100MG/5ML SDV (FOR ANES.) As Ordered ONE; -propofoL 200 MG/20 ML VIAL As Ordered ONE
== END ==
LOC: M WHC 10:17
PROVIDERS: ATTEND Family Medicine
DX: Z12.31 Encounter for screening mammogram for malignant neoplasm of breast (principal); R92.323 Mammographic fibroglandular density, bilateral breasts

== ENCOUNTER → 2024-06-10 | Outpatient (CLI) | payer MEDICARE, OTHER ==
[~2024-06-10] MED LIST changes: +FEXO60TA98 PO; +NORV5TAB PO
[2024-06-10 13:20] LABS: THYROXINE (T4) 7.3 UG/DL (4.5-10.9)
[2024-06-10 13:21] LABS: FREE T4 1.17 NG/DL (0.89-1.76); FREE THYROXINE INDEX 2.3 % (1.3-4.8); THYROID STIMULATING HORMONE 2.698 uIU/ML (0.55-4.78); VITAMIN B12 LEVEL 832 PG/ML (211-911)
[2024-06-10 13:30] LABS: FOLATE > 24.00 NG/ML (>5.4); HEMOGLOBIN A1c 7.4 % (4.0-6.0)
== END ==
LOC: M LAB 12:08
PROVIDERS: ATTEND Psychiatry & Neurology Neurology
DX: E53.8 Deficiency of other specified B group vitamins (principal); E07.9 Disorder of thyroid, unspecified

== ENCOUNTER → 2024-11-28 | Outpatient (CLI) | payer MEDICARE, OTHER | LOC: M LAB 11:53 | PROVIDERS: ATTEND Psychiatry & Neurology Neurology | DX: R51.9 Headache, unspecified (principal) ==